=== PATIENT | male | born 1960 | race Caucasian/White ===

== ENCOUNTER → 2017-05-18 | Outpatient (CLI) | payer OTHER ==
[~2017-05-18] MED LIST: ALBUAER2 PO; ASPI325T39 PO; ATOR-22 PO; GLYB-108 PO; HYDR25TA5; LEVO100T84 PO; NEBI20TA2 PO; XRL15 PO; ZNTT/150 PO
[2017-05-18 12:44] LABS: HEMATOCRIT 48.4 % (42-52); MEAN CELL VOLUME 92.2 fL (80-100); MEAN CORPUSCULAR HEMOGLOBIN 29.5 pg (25-34); MEAN PLATELET VOLUME 12.7 fL (7.4-10.4); PLATELET COUNT 151 K/uL (130-400); RED BLOOD COUNT 5.25 M/uL (4.7-6.1); WHITE BLOOD COUNT 9.99 K/uL (4.8-10.8)
[2017-05-18 13:09] LABS: ESTIMATED AVERAGE GLUCOSE 94 mg/dl; HA1C FLAG Normal (Normal)
[2017-05-18 13:23] LABS: ALT/SGPT 17 U/L (12-78); AST/SGOT 15 U/L (15-37); BLOOD UREA NITROGEN 11 mg/dl (7-18); BUN/CREATININE RATIO 16.5 (10-20); CALCIUM 8.9 mg/dl (8.5-10.1); CARBON DIOXIDE 24 mmol/L (21-32); CHLORIDE 108 mmol/L (98-107); CHOLESTEROL 134 mg/dl (0-200); CREATININE 0.66 mg/dl (0.60-1.40); GLUCOSE 90 mg/dl (70-99); POTASSIUM 4.2 mmol/L (3.5-5.1); SODIUM 139 mmol/L (136-145); TRIGLYCERIDES 91 mg/dl (0-150); VERY LOW DENSITY LIPOPROT CALC 18 mg/dl
[2017-05-18 13:33] LABS: ALB/GLOB RATIO 0.9 (0.9-2); ALKALINE PHOSPHATASE 89 U/L (45-117); CHOLESTEROL/HDL RATIO 4.6; HDL CHOLESTEROL 29 mg/dl; LDL CHOLESTEROL CALCULATED 87 mg/dl; PROSTATE SPECIFIC ANTIGEN 0.587 ng/ml (0.000-4.000)
[2017-05-18 13:33] LABS: RATIO 8.1 mcg/mg (0-30.0)
== END | disposition home or self-care (01) ==
LOC: C.LABPVFM 08:15
PROVIDERS: ATTEND Internal Medicine
DX: E11.9 Type 2 diabetes mellitus without complications (principal); Z12.5 Encounter for screening for malignant neoplasm of prostate

== ENCOUNTER → 2017-06-01 | Outpatient (CLI) | payer OTHER | END | disposition home or self-care (01) | LOC: C.PATHSPEC 17:05 | PROVIDERS: ATTEND Nurse Practitioner Family | DX: R31.0 Gross hematuria (principal) ==

== ENCOUNTER → 2017-06-09 | Outpatient (CLI) | payer OTHER ==
[~2017-06-09] MED LIST changes: +OPTIRAY 320 IV PRN
--- NOTE | 2017-06-09 10:58 | DIAGNOSTIC IMAGING REPORT ---
CT UROGRAM CLINICAL HISTORY: Gross hematuria. Bilateral flank pain. COMPARISON STUDY: Abdominal CT dated 02/13/2016. TECHNIQUE: Before and following the IV administration of 93 cc of Optiray 320, CT urogram of the abdomen and pelvis is performed from the lung bases to the proximal femora. Images are reviewed in the axial, sagittal, and coronal planes. IV contrast was administered without complication. A dose lowering technique was utilized adhering to the principles of ALARA. The examination is degraded by large body habitus, and by streak artifact from the body wall abutting the CT gantry. CT DOSE: 2527.73 mGycm FINDINGS: Lung bases: The heart is normal in size and without pericardial effusion. The lung bases are clear. Liver: The contrast-enhanced liver is enlarged, measuring 19.0 cm in length. The liver demonstrates diffusely diminished attenuation consistent with hepatic steatosis. There is no intrahepatic biliary ductal dilatation. The hepatic veins and portal veins are patent. Gallbladder: Unremarkable. Spleen: The spleen is mildly enlarged measuring 13.7 cm in length. Pancreas: Unremarkable. Adrenal glands: Unremarkable. Kidneys and ureters: The contrast enhanced kidneys are normal in size and without hydronephrosis. There are no renal calculi identified on the unenhanced images. The kidneys enhance and excrete symmetrically. There is no enhancing renal cortical mass lesion identified. There is no evidence of urothelial lesion within the renal pelvis bilaterally or along the course of either ureter. The majority of the right ureter is not well opacified. Abdominal vasculature: The abdominal aorta is normal in course and caliber noting mild atherosclerotic calcification. Bowel: The small bowel and colon are normal in course and caliber. There is mild colonic diverticulosis without CT evidence of acute diverticulitis. The appendix is well-visualized and normal. Peritoneum: There is no intraperitoneal free air or abdominal ascites. Lymphadenopathy: Prominent right external iliac chain lymph nodes are similar to previous measuring up to 11 mm in short axis. Pelvic viscera: The bladder is decompressed and grossly unremarkable. The prostate gland appears diminutive and heterogeneous. The seminal vesicles are normal as imaged. Skeletal structures: Mild lumbosacral spondylosis is observed. No lytic or blastic bony lesions are seen. IMPRESSION: 1. Unremarkable CT urogram. 2. The bladder is decompressed and grossly unremarkable. 3. Hepatomegaly and hepatic steatosis. 4. Mild splenomegaly. 5. Additional findings as above. Electronically signed by: Nabil Alexander M.D. 06/09/2017 10:57 AM Dictated Date/Time: 06/09/2017 10:49 AM
== END | disposition home or self-care (01) ==
LOC: C.CTS 10:00
PROVIDERS: ATTEND Nurse Practitioner Family
DX: R31.0 Gross hematuria (principal); R16.0 Hepatomegaly, not elsewhere classified; K76.0 Fatty (change of) liver, not elsewhere classified

== ENCOUNTER → 2017-09-08 | Outpatient (CLI) | payer OTHER ==
[~2017-09-08] MED LIST changes: -OPTIRAY 320 IV PRN
== END | disposition home or self-care (01) ==
LOC: C.LABBFT 12:36
PROVIDERS: ATTEND Internal Medicine
DX: R30.0 Dysuria (principal)

== ENCOUNTER → 2017-10-27 | Outpatient (CLI) | payer OTHER | END | disposition home or self-care (01) | LOC: C.RDSM 09:20 | PROVIDERS: ATTEND Family Medicine Sports Medicine | DX: M25.561 Pain in right knee (principal) ==

== ENCOUNTER → 2017-12-02 | Outpatient (CLI) | payer OTHER ==
[~2017-12-02] MED LIST changes: +RANI150T85 PO; -ZNTT/150 PO
[2017-12-02 12:17] LABS: HEMOGLOBIN 16.3 g/dL (14.0-18.0); MEAN CELL VOLUME 93.5 fL (80-100); MEAN CORPUSCULAR HEMOGLOBIN 30.5 pg (25-34); MEAN CORPUSCULAR HGB CONC 32.6 g/dl (32-36); MEAN PLATELET VOLUME 12.7 fL (7.4-10.4); PLATELET COUNT 145 K/uL (130-400); RED CELL DISTRIBUTION WIDTH CV 14.3 % (11.5-14.5); RED CELL DISTRIBUTION WIDTH SD 48.8 fL (36.4-46.3); WHITE BLOOD COUNT 9.79 K/uL (4.8-10.8)
[2017-12-02 13:33] LABS: ALBUMIN 3.7 gm/dl (3.4-5.0); ALT/SGPT 16 U/L (12-78); AST/SGOT 11 U/L (15-37); BLOOD UREA NITROGEN 11 mg/dl (7-18); CALCIUM 9.2 mg/dl (8.5-10.1); CARBON DIOXIDE 28 mmol/L (21-32); CHOLESTEROL 151 mg/dl (0-200); CREATININE 0.78 mg/dl (0.60-1.40); GLUCOSE 94 mg/dl (70-99); POTASSIUM 4.4 mmol/L (3.5-5.1); SODIUM 137 mmol/L (136-145)
[2017-12-02 13:43] LABS: ALKALINE PHOSPHATASE 82 U/L (45-117); LDL CHOLESTEROL CALCULATED 99 mg/dl; TOTAL PROTEIN 7.8 gm/dl (6.4-8.2)
== END | disposition home or self-care (01) ==
LOC: C.LABPVFM 10:00
PROVIDERS: ATTEND Internal Medicine
DX: E03.9 Hypothyroidism, unspecified (principal); E11.9 Type 2 diabetes mellitus without complications

== ENCOUNTER → 2017-12-22 | Outpatient (CLI) | payer OTHER ==
[~2017-12-22] MED LIST changes: +ASPI81TA28 PO; +LEVO100T7 PO; +LSX20 PO; +NTRGSL/4 UT; +RIVA1TAB4 PO; +VNTHFA/IN INH
--- NOTE | 2017-12-22 08:46 | DIAGNOSTIC IMAGING REPORT ---
R KNEE 1 OR 2 VIEWS CLINICAL HISTORY: 57 years-old Male presenting with RIGHT KNEE DJD/PRE OP EXAM. TECHNIQUE: Frontal and lateral views of the right knee were obtained. COMPARISON: 10/27/2017. FINDINGS: Significant medial joint space loss again evident. Tricompartmental degenerative change evidenced by osteophytosis. Degenerative changes most severe in the medial compartment. Subchondral sclerosis evident in the medial compartment. Moderate knee joint effusion. No acute fracture or acute malalignment. A loose body may be present in the posterior aspect of the knee in addition to the flabella. IMPRESSION: Tricompartmental degenerative changes most severe in the medial compartment, where there is joint space loss, subchondral sclerosis, and osteophytosis. Electronically signed by: Benoit Conklin M.D. 12/22/2017 8:45 AM Dictated Date/Time: 12/22/2017 8:43 AM
== END | disposition home or self-care (01) ==
LOC: C.RDSM 08:34
PROVIDERS: ATTEND Physician Assistant
DX: Z01.818 Encounter for other preprocedural examination (principal); M17.0 Bilateral primary osteoarthritis of knee

== ENCOUNTER → 2018-02-02 | Outpatient (CLI) | payer OTHER ==
[~2018-02-02] MED LIST changes: -ALBUAER2 PO; -ASPI325T39 PO; -ATOR-22 PO; -GLYB-108 PO; -HYDR25TA5; -LEVO100T84 PO; -RANI150T85 PO; -XRL15 PO
== END | disposition home or self-care (01) ==
LOC: C.LABPVFM 08:17
PROVIDERS: ATTEND Urology
DX: R10.9 Unspecified abdominal pain (principal)

== ENCOUNTER → 2018-02-02 | Outpatient (CLI) | payer OTHER ==
[~2018-02-02] MED LIST changes: +OPTIRAY 320 IV PRN
--- NOTE | 2018-02-02 15:17 | DIAGNOSTIC IMAGING REPORT ---
ABD/PELVIS COMBO CT DOSE: 2661.72 mGy.cm HISTORY: Hematuria R31.0 Gross hematuria TECHNIQUE: Multiaxial CT images of the abdomen and pelvis were performed pre and post intravenous contrast enhancement. A dose lowering technique was utilized adhering to the principles of ALARA. COMPARISON STUDY: 06/09/2017 FINDINGS: The lung bases are clear. The liver, spleen, gallbladder, pancreas, kidneys, and adrenal glands are within normal limits. No bowel wall thickening or obstruction. The pelvic organs are unremarkable. No suspicious lytic or blastic osseous lesions. Three-dimensional evaluation of the urinary tract shows no significant abnormality. There are no filling defects within the renal collecting systems or ureters. Delayed images of the bladder showed no major filling defect. The may be a minimal degree of bladder wall trabeculation. Bowel pattern is nonobstructive. There are findings of mild chronic sigmoid diverticulosis. There is no evidence for acute diverticulitis. Survey evaluation of the osseous structures shows no acute leg or blastic process. There are moderate degenerative changes throughout. IMPRESSION: No significant abnormality identified within the abdomen or pelvis. Negative multiphase CT evaluation of the urinary tracts. Minimal bladder wall trabeculation. The above report was generated using voice recognition software. It may contain grammatical, syntax or spelling errors. Electronically signed by: Aiden Mancia M.D. 02/02/2018 3:16 PM Dictated Date/Time: 02/02/2018 2:58 PM
== END | disposition home or self-care (01) ==
LOC: C.CTS 14:32
PROVIDERS: ATTEND Nurse Practitioner Family
DX: R31.0 Gross hematuria (principal)